=== PATIENT | female | born 1940 | race Caucasian/White ===

== ENCOUNTER 2019-01-30 08:26 | Emergency (ER) | payer MEDICARE, OTHER ==
[2019-01-30 08:32] VITALS: BP 132/72; PULSE 60; RESP 20; TEMP 97.5
[2019-01-30] MEDS ORDERED: LIDOCAINE 1% INJ 10MG/ML (20 ML MDV) SQ ONE (08:38)
--- NOTE | 2019-01-30 09:15 | XR ---
Left hip HISTORY: Trauma and pain 2 views of the left hip Bone mineralization is reduced. Alignment and joint spaces are maintained. IMPRESSION: No fracture or dislocation.
[2019-01-30] MEDS ORDERED: DIPH,PERTUS(ACELL)TETVAC-LF 0.5 ML VIAL IM ONE (09:56)
--- NOTE | 2019-01-30 10:04 | ED ---
Wound/Laceration HPI - General Chief Complaint: Wound/Laceration Stated Complaint: Fell lip laceration/leg pain Time Seen by Provider: 01/30/19 08:33 Source: patient, family Mode of arrival: ambulatory Limitations: no limitations - History of Present Illness Initial Comments: 78-year-old female presenting today for chief complaint of fall. Patient states that she was getting help from an aide getting dressed when she lost her balance falling back into her recliner, Denies head or neck injury. States she bit the inside portion of her left check. patient went to PCP because she thought she might need suture and was sent to the ER for repair as they did not have the absorable sutures. Patient states after she fell she had slight upper thigh pain. But states she can walk without a problem, no numbness, tingling or severe pain. Patient states she did not have this pain prior to falling. Patient has no other complaints. Remaining ROS (-). - Related Data Home Medications Medication Instructions Recorded Confirmed Atenolol [Tenormin] 25 mg PO BID 10/07/18 01/30/19 Levothyroxine Sodium [Synthroid] 112 mcg PO DAILY 10/07/18 01/30/19 QUEtiapine [SEROquel] 25 mg PO DAILY 01/30/19 01/30/19 Previous Rx's Medication Instructions Recorded Omeprazole 40 mg PO DAILY #20 capsule. 10/07/18 Allergies Allergy/AdvReac Type Severity Reaction Status Date / Time No Known Allergies Allergy Verified 01/30/19 09:24 Review of Systems ROS Statement: Those systems with pertinent positive or pertinent negative responses have been documented in the HPI. ROS Other: All systems not noted in ROS Statement are negative. Past Medical History Past Medical History: Dementia, Hypertension, Thyroid Disorder History of Any Multi-Drug Resistant Organisms: None Reported Additional Past Surgical History / Comment(s): thyroidectomy Past Psychological History: Depression Smoking Status: Never smoker Past Alcohol Use History: None Reported Past Drug Use History: None Reported General Exam - General Exam Comments Initial Comments: General: The patient is awake and alert, in no distress, and does not appear acutely ill. Eye: +3 mm pupils are equal, round and reactive to light, extra-ocular movements are intact. No nystagmus. There is normal conjunctiva bilaterally. No signs of icterus. Ears, nose, mouth and throat: There are moist mucous membranes. Triagular (dog ear) type laceration of inner buccal mucosa with slight extension toward corner of mouth. No involvement of the marco border, no through and through injury. No tooth avulsion or active bleeding. Neck: The neck is supple, there is no tenderness or JVD. No midline or pa ravertebral tenderness to palpation of the cervical spine. Cardiovascular: There is a regular rate and rhythm. No murmur, rub or gallop is appreciated. Respiratory: Lungs are clear to auscultation, respirations are non-labored, breath sounds are equal. No wheezes, stridor, rales, or rhonchi. Gastrointestinal: Soft, non-distended, non-tender abdomen without masses or organomegaly noted. There is no rebound or guarding present. Musculoskeletal: Normal ROM, no tenderness. Strength 5/5. Sensation intact. Radial pulses equal bilaterally 2+. Neurological: A&O x 3. CN II-XII intact, There are no obvious motor or sensory deficits. Coordination appears grossly intact. Speech is normal. Skin: Skin is warm and dry and no rashes or lesions are noted. Psychiatric: Cooperative, appropriate mood & affect, normal judgment. Limitations: no limitations Course Vital Signs 01/30/19 08:30 Temperature 97.5 F L Pulse Rate 60 Respiratory 20 Rate Blood Pressure 132/72 O2 Sat by Pulse 96 Oximetry Procedures - Laceration Laceration #1 Consent Obtained: verbal consent Indication: laceration Site: oral Size (cm): 3 Description: flap, irregular Depth: simple, single layer Pre-repair: wound explored, deep structures intact Type of Sutures: vicryl (rapide) Size of Sutures: 5-0 Number of Sutures: 7 Patient Tolerated Procedure: well, no complications Additional Comments: Patient refused numbing medication, states just get it over with. tolerated procedure without grimacing or signs of pain. Medical Decision Making - Medical Decision Making 78-year-old female presenting for oral laceration. Laceration repair. Patient tolerated procedure well. Tetanus updated. Patient is no focal neurological deficits. Patient neurovascularly intact. Patient imaging study of the hip revealed no osseous injury. Ambulates without difficulty. Patient stating she is ready to go. Term parameters as well as suture care was discussed with family and patient verbalized understanding. Patient was discharged appearing well after discussing case attending provider Dr. Michael Disposition Clinical Impression: Laceration of mouth, Left leg pain, Fall Disposition: HOME SELF-CARE Condition: Good Instructions (If sedation given, give patient instructions): Care For Your Absorbable Stitches (ED) Additional Instructions: Please use medication as discussed. Please follow-up with family doctor in the next 2 days, for wound check. Please return to emergency room if the symptoms increase or worsen or for any other concerns. Is patient prescribed a controlled substance at d/c from ED?: No Referrals: Emmanuel Alvares MD [Primary Care Provider] - 1-2 days Time of Disposition: 10:03
== END 2019-01-30 10:34 | disposition home or self-care (01) ==
LOC: EC 08:26
DX: S01.512A Laceration without foreign body of oral cavity, initial encounter (principal); M79.605 Pain in left leg; M79.659 Pain in unspecified thigh; I10 Essential (primary) hypertension; E07.9 Disorder of thyroid, unspecified; F32.9 Major depressive disorder, single episode, unspecified; F03.90 Unspecified dementia, unspecified severity, without behavioral disturbance, psychotic disturbance, mood disturbance, and anxiety; Z79.890 Hormone replacement therapy; Z79.899 Other long term (current) drug therapy; Z23 Encounter for immunization; W01.0XXA Fall on same level from slipping, tripping and stumbling without subsequent striking against object, initial encounter; Y93.89 Activity, other specified; Y92.009 Unspecified place in unspecified non-institutional (private) residence as the place of occurrence of the external cause
CPT/HCPCS: 73502; 90715; 99283; 12013; 90471; J2001

== ENCOUNTER 2019-12-20 16:07 | Inpatient (IN) | payer MEDICARE, OTHER ==
[2019-12-20] MEDS ORDERED: SODIUM CHLORIDE 0.9% 500 ML 500 ML IV ONE (17:03)
--- NOTE | 2019-12-20 17:43 | CT ---
EXAMINATION TYPE: CT brain wo con DATE OF EXAM: 12/20/2019 HISTORY: Altered mental status. CT DLP: 1064.4 mGycm. Automated Exposure Control for Dose Reduction was Utilized. TECHNIQUE: CT scan of the head is performed without contrast. COMPARISON: CT brain October 07, 2018. FINDINGS: There is no acute intracranial hemorrhage or midline shift identified. There is diffuse v entricular and sulcal prominence consistent with diffuse age-related cerebral atrophy. There is low- attenuation in the periventricular white matter consistent with chronic small vessel ischemic change. The globes are intact and the visualized sinuses are clear. Hyperostosis frontalis is seen. Stabl e sclerotic focus left frontal region axial image 24. Persistent cerumen left external auditory canal . IMPRESSION: No acute intracranial hemorrhage or midline shift. There is persistent moderate diffuse age-related cerebral atrophy and chronic small vessel ischemic change redemonstrated. No significant change from prior study.
[2019-12-20 18:03] LABS: Basophils # (A) 0.1 k/uL (0-0.2); Basophils % (A) 1 %; Eosinophils # (A) 0.3 k/uL (0-0.7); Eosinophils % (A) 4 %; HCT 44.5 % (34.0-46.0); HGB 14.7 gm/dL (11.4-16.0); Lymphocytes # (A) 1.9 k/uL (1.0-4.8); Lymphocytes % (A) 29 %; MCH 29.7 pg (25.0-35.0); MCHC 33.2 g/dL (31.0-37.0); MCV 89.5 fL (80.0-100.0); Mean Platelet Volume 7.8; Monocytes # (A) 0.5 k/uL (0-1.0); Monocytes % (A) 7 %; Neutrophils # (A) 3.6 k/uL (1.3-7.7); Neutrophils % (A) 56 %; Platelet Count 213 k/uL (150-450); RBC 4.97 m/uL (3.80-5.40); RDW 12.4 % (11.5-15.5); WBC 6.5 k/uL (3.8-10.6)
[2019-12-20 18:06] LABS: Appearance,Urine Clear (Clear); Bilirubin,Urine Negative (Negative); Blood,Urine Negative (Negative); Color,Urine Yellow; Glucose,Urine (UA) Negative (Negative); Ketones,Urine 1+ (Negative); Leukocyte Esterase,Urine Negative (Negative); Nitrite,Urine Negative (Negative); Protein,Urine Trace (Negative); Specific Gravity,Urine 1.025 (1.001-1.035)
--- NOTE | 2019-12-20 18:07 | XR ---
EXAMINATION TYPE: XR chest 2V DATE OF EXAM: 12/20/2019 COMPARISON: Chest x-ray May 11, 2011. HISTORY: Altered mental status and weakness. TECHNIQUE: Frontal and lateral views of the chest are obtained. FINDINGS: There is some chronic parenchymal change bilaterally without suspicious focal air space op acity, pleural effusion, or pneumothorax seen. Slightly diminished inspiration on current study versu s prior. The cardiac silhouette size remains enlarged with atherosclerotic aorta. The osseous stru ctures remain demineralized. Advanced degenerative change bilateral glenohumeral joints is present. S ome prominent gas-filled bowel loops in the abdomen likely small bowel loops noted. Correlate clinica lly. IMPRESSION: Chronic changes and cardiomegaly without acute pulmonary process.
[2019-12-20 18:12] LABS: INR 1.1 (<1.2); Partial Thromboplastin Time 27.1 sec (22.0-30.0); Prothrombin Time 11.2 sec (9.0-12.0)
[2019-12-20 18:15] LABS: ALT 14 U/L (4-34); AST 25 U/L (14-36); African American GFR (CKD) >90 (>60 ml/min/1.73 sqM); Alkaline Phosphatase 118 U/L (38-126); Amphetamine Screen,Urine Not Detected (NotDetected); Anion Gap 10 mmol/L; Barbiturate Screen,Urine Not Detected (NotDetected); Benzodiazepines Screen,Urine Detected (NotDetected); Blood Urea Nitrogen 19 mg/dL (7-17); Calcium 9.7 mg/dL (8.4-10.2); Carbon Dioxide 24 mmol/L (22-30); Chloride 105 mmol/L (98-107); Cocaine Screen,Urine Not Detected (NotDetected); Glucose 73 mg/dL (74-99); Methadone Screen, Urine Not Detected (NotDetected); Non-African American GFR(CKD) >90 (>60 ml/min/1.73 sqM); Opiate Screen,Urine Not Detected (NotDetected); Oxycodone Screen, Urine Not Detected (NotDetected); Phencyclidine Screen,Urine Not Detected (NotDetected); Potassium 3.5 mmol/L (3.5-5.1); Sodium 139 mmol/L (137-145); Total Bilirubin 0.5 mg/dL (0.2-1.3); Total Protein 6.7 g/dL (6.3-8.2); Tricyclic Antidepressant,Urine Detected (NotDetected); Urn Cannabinoid Scrn Not Detected (NotDetected)
--- NOTE | 2019-12-20 18:15 | ED ---
General Adult HPI - General Chief complaint: Altered Mental Status Stated complaint: Failure to Thrive Time Seen by Provider: 12/20/19 16:20 Source: EMS, RN notes reviewed, old records reviewed Mode of arrival: EMS Limitations: altered mental status - History of Present Illness Initial comments: This is an 79-year-old female who presents to the emergency department because she is more altered than normal and not taking her care of herself. Patient is unable to give any history at all she is alert and oriented 1 at best on occasion she is alert and oriented 0. Patient is sometimes combative when you agitated at all. Patient does not look however in any distress. No other history is available no family members with the patient. - Related Data Home Medications Medication Instructions Recorded Confirmed Atenolol [Tenormin] 25 mg PO BID 10/07/18 01/30/19 Levothyroxine Sodium [Synthroid] 112 mcg PO DAILY 10/07/18 01/30/19 QUEtiapine [SEROquel] 25 mg PO DAILY 01/30/19 01/30/19 Previous Rx's Medication Instructions Recorded Omeprazole 40 mg PO DAILY #20 capsule. 10/07/18 Allergies Allergy/AdvReac Type Severity Reaction Status Date / Time No Known Allergies Allergy Verified 12/20/19 16:21 Review of Systems ROS Statement: Those systems with pertinent positive or pertinent negative responses have been documented in the HPI. ROS Other: All systems not noted in ROS Statement are negative. Past Medical History Past Medical History: Dementia, Hypertension, Thyroid Disorder History of Any Multi-Drug Resistant Organisms: None Reported Additional Past Surgical History / Comment(s): thyroidectomy Past Psychological History: Depression Smoking Status: Never smoker Past Alcohol Use History: None Reported Past Drug Use History: None Reported General Exam - General Exam Comments Initial Comments: GENERAL: Patient is well-developed and well-nourished. Patient is nontoxic and well- hydrated and is in no acute distress. ENT: Neck is soft and supple. No significant lymphadenopathy is noted. Oropharynx is clear. Moist mucous membranes. Neck has full range of motion without eliciting any pain. EYES: The sclera were anicteric and conjunctiva were pink and moist. Extraocular movements were intact and pupils were equal round and reactive to light. Eyelids were unremarkable. PULMONARY: Unlabored respirations. Good breath sounds bilaterally. No audible rales rhonchi or wheezing was noted. CARDIOVASCULAR: There is a regular rate and rhythm without any murmurs gallops or rubs. ABDOMEN: Soft and nontender with normal bowel sounds. SKIN: Skin is clear with no lesions or rashes and otherwise unremarkable. NEUROLOGIC: Patient is alert and oriented 1. Cranial nerves II through XII are grossly intact. Motor and sensory are also intact. Normal speech, volume and content. Symmetrical smile. MUSCULOSKELETAL: Normal extremities with adequate strength and full range of motion. No lower extremity swelling or edema. No calf tenderness. LYMPHATICS: No significant lymphadenopathy is noted PSYCHIATRIC: Unable to assess Course Vital Signs 12/20/19 16:17 Temperature 98.1 F Pulse Rate 69 Respiratory 18 Rate Blood Pressure 143/68 O2 Sat by Pulse 96 Oximetry Medical Decision Making - Medical Decision Making EKG shows normal sinus rhythm at 60 bpm AR interval 180 Fortress is 92 QT interval is 428 QTC is 420. Patient's EKG shows no ST segment elevation or depression. CT head shows no acute abnormality. Chest x-ray shows no acute abnormality. Patient continues to remain altered however I do not know the patient's baseline and family is not available here. I spoke with sounds physician's agreed to admit the patient admitted the patient wrote admitting orders. - Lab Data Result diagrams: 12/20/19 17:45 12/20/19 17:45 Lab Results 12/20/19 12/20/19 12/20/19 Range/Units 17:45 17:45 17:45 WBC 6.5 (3.8-10.6) k/uL RBC 4.97 (3.80-5.40) m/uL Hgb 14.7 (11.4-16.0) gm/dL Hct 44.5 (34.0-46.0) % MCV 89.5 (80.0-100.0) fL MCH 29.7 (25.0-35.0) pg MCHC 33.2 (31.0-37.0) g/dL RDW 12.4 (11.5-15.5) % Plt Count 213 (150-450) k/uL Neutrophils % 56 % Lymphocytes % 29 % Monocytes % 7 % Eosinophils % 4 % Basophils % 1 % Neutrophils # 3.6 (1.3-7.7) k/uL Lymphocytes # 1.9 (1.0-4.8) k/uL Monocytes # 0.5 (0-1.0) k/uL Eosinophils # 0.3 (0-0.7) k/uL Basophils # 0.1 (0-0.2) k/uL PT 11.2 (9.0-12.0) sec INR 1.1 (<1.2) APTT 27.1 (22.0-30.0) sec Sodium (137-145) mmol/L Potassium (3.5-5.1) mmol/L Chloride (98-107) mmol/L Carbon Dioxide (22-30) mmol/L Anion Gap mmol/L BUN (7-17) mg/dL Creatinine (0.52-1.04) mg/dL Est GFR (CKD-EPI)AfAm (>60 ml/min/1.73 sqM) Est GFR (CKD-EPI)NonAf (>60 ml/min/1.73 sqM) Glucose (74-99) mg/dL Calcium (8.4-10.2) mg/dL Total Bilirubin (0.2-1.3) mg/dL AST (14-36) U/L ALT (4-34) U/L Alkaline Phosphatase (38-126) U/L Troponin I (0.000-0.034) ng/mL Total Protein (6.3-8.2) g/dL Albumin (3.5-5.0) g/dL Urine Color Yellow Urine Appearance Clear (Clear) Urine pH 6.0 (5.0-8.0) Ur Specific [facility] 1.025 (1.001-1.035) Urine Protein Trace H (Negative) Urine Glucose (UA) Negative (Negative) Urine Ketones 1+ H (Negative) Urine Blood Negative (Negative) Urine Nitrite Negative (Negative) Urine Bilirubin Negative (Negative) Urine Urobilinogen 4.0 (<2.0) mg/dL Ur Leukocyte Esterase Negative (Negative) Urine Opiates Screen Not Detected (NotDetected) Ur Oxycodone Screen Not Detected (NotDetected) Urine Methadone Screen Not Detected (NotDetected) Ur Propoxyphene Screen Not Detected (NotDetected) Ur Barbiturates Screen Not Detected (NotDetected) U Tricyclic Antidepress Detected H (NotDetected) Ur Phencyclidine Scrn Not Detected (NotDetected) Ur Amphetamines Screen Not Detected (NotDetected) U Methamphetamines Scrn Not Detected (NotDetected) U Benzodiazepines Scrn Detected H (NotDetected) Urine Cocaine Screen Not Detected (NotDetected) U Marijuana (THC) Screen Not Detected (NotDetected) 12/20/19 12/20/19 Range/Units 17:45 17:45 WBC (3.8-10.6) k/uL RBC (3.80-5.40) m/uL Hgb (11.4-16.0) gm/dL Hct (34.0-46.0) % MCV (80.0-100.0) fL MCH (25.0-35.0) pg MCHC (31.0-37.0) g/dL RDW (11.5-15.5) % Plt Count (150-450) k/uL Neutrophils % % Lymphocytes % % Monocytes % % Eosinophils % % Basophils % % Neutrophils # (1.3-7.7) k/uL Lymphocytes # (1.0-4.8) k/uL Monocytes # (0-1.0) k/uL Eosinophils # (0-0.7) k/uL Basophils # (0-0.2) k/uL PT (9.0-12.0) sec INR (<1.2) APTT (22.0-30.0) sec Sodium 139 (137-145) mmol/L Potassium 3.5 (3.5-5.1) mmol/L Chloride 105 (98-107) mmol/L Carbon Dioxide 24 (22-30) mmol/L Anion Gap 10 mmol/L BUN 19 H (7-17) mg/dL Creatinine 0.49 L (0.52-1.04) mg/dL Est GFR (CKD-EPI)AfAm >90 (>60 ml/min/1.73 sqM) Est GFR (CKD-EPI)NonAf >90 (>60 ml/min/1.73 sqM) Glucose 73 L (74-99) mg/dL Calcium 9.7 (8.4-10.2) mg/dL Total Bilirubin 0.5 (0.2-1.3) mg/dL AST 25 (14-36) U/L ALT 14 (4-34) U/L Alkaline Phosphatase 118 (38-126) U/L Troponin I <0.012 (0.000-0.034) ng/mL Total Protein 6.7 (6.3-8.2) g/dL Albumin 4.0 (3.5-5.0) g/dL Urine Color Urine Appearance (Clear) Urine pH (5.0-8.0) Ur Specific [facility] (1.001-1.035) Urine Protein (Negative) Urine Glucose (UA) (Negative) Urine Ketones (Negative) Urine Blood (Negative) Urine Nitrite (Negative) Urine Bilirubin (Negative) Urine Urobilinogen (<2.0) mg/dL Ur Leukocyte Esterase (Negative) Urine Opiates Screen (NotDetected) Ur Oxycodone Screen (NotDetected) Urine Methadone Screen (NotDetected) Ur Propoxyphene Screen (NotDetected) Ur Barbiturates Screen (NotDetected) U Tricyclic Antidepress (NotDetected) Ur Phencyclidine Scrn (NotDetected) Ur Amphetamines Screen (NotDetected) U Methamphetamines Scrn (NotDetected) U Benzodiazepines Scrn (NotDetected) Urine Cocaine Screen (NotDetected) U Marijuana (THC) Screen (NotDetected) Disposition Clinical Impression: Altered mental status, Inability to perform activities of daily living Disposition: ADMITTED IP TO THIS [facility] Referrals: Emmanuel Alvares MD [Primary Care Provider] - 1-2 days Time of Disposition: 18:37
[2019-12-20] MEDS ORDERED: SODIUM CHLORIDE 0.9% 1,000 ML IV ONE (18:38)
[2019-12-20] MEDS ORDERED: HALOPERIDOL LACTATE 5 MG/ML 1 ML VIAL IM STA (20:50)
[2019-12-20 21:03] VITALS: TEMP 98.5
--- NOTE | 2019-12-20 21:59 | P.HPIM ---
History of Present Illness H&P Date: 12/20/19 The patient is an 79-year-old female with a PMH of hypertension, hypothyroid rhythm, and advanced dementia who was sent in from [facility] assisted living. The patient is an extremity poor historian with history obtained from daughter Namita via phone ([phone] of consumer attorney). The daughter notes that she was notified by the assisted living facility that over the past few months, the patients condition of gradually been deteriorating. She reports that her mother's dementia has advanced significantly, and that she is normally only oriented to self and is not able to perform her ADLs other than using the restroom. She notes that there were plans to move towards 24-hour care in the same facility, though the patient had been eating less over the past few days and also had a fall a week ago, which prompted them to send the patient to the hospital for further evaluation. The patient was evaluated in the emergency room. She was pleasant though was only oriented to self and not able to answer questions appropriately. She was unable to state where she lived or where she currently was. She also was not aware of the year. She however denied any active complaints. She denied chest pain, shortness of breath, fever, chills, abdominal pain, dysuria, nausea, or vomiting. She had undergone extensive evaluation in the emergency room with an EKG showing normal sinus rhythm at 60 bpm with chest x-ray showing chronic changes and cardiomegaly without acute abnormalities. CT brain revealed persistent moderate diffuse age-related cerebral atrophy and chronic small vessel ischemic changes with no other acute findings. Laboratory evaluation was unremarkable except for an elevated BUN of 19, creatinine low at 0.49, and a glucose of 73. UA was negative for infection. Review of Systems Pertinent positives and negatives as discussed in HPI, a complete review of systems was performed and all other systems are negative. Past Medical History Past Medical History: Dementia, Hypertension, Thyroid Disorder History of Any Multi-Drug Resistant Organisms: None Reported Additional Past Surgical History / Comment(s): thyroidectomy Past Psychological History: Depression Smoking Status: Never smoker Past Alcohol Use History: None Reported Past Drug Use History: None Reported Medications and Allergies Home Medications Medication Instructions Recorded Confirmed Type Atenolol [Tenormin] 25 mg PO BID 10/07/18 01/30/19 History Levothyroxine Sodium [Synthroid] 112 mcg PO DAILY 10/07/18 01/30/19 History ALPRAZolam [Xanax] 0.25 mg PO BID 12/20/19 12/20/19 History Donepezil HCl [Aricept] 5 mg PO DAILY 12/20/19 12/20/19 History QUEtiapine [SEROquel] 100 mg PO HS 12/20/19 12/20/19 History Sertraline HCl [Zoloft] 50 mg PO DAILY 12/20/19 12/20/19 History Allergies Allergy/AdvReac Type Severity Reaction Status Date / Time No Known Allergies Allergy Verified 12/20/19 20:55 Physical Exam Vitals: Vital Signs Temp Pulse Resp BP Pulse Ox 12/20/19 19:37 98.2 F 65 16 133/65 97 12/20/19 16:17 98.1 F 69 18 143/68 96 Intake and Output 12/20/19 12/20/19 12/20/19 06:59 14:59 22:59 Other: Weight 46.901 kg General: non toxic, no distress, appears at stated age, normal weight Derm: no unusual rashes/lesions no unusual ecchymoses, warm, dry Head: atraumatic, normocephalic, symmetric Eyes: EOMI, no lid lag, anicteric sclera, pupils equal round reactive to light ENT: Nose and ears atraumatic, no thrush, no pharyngeal erythema Neck: No thyromegaly, no cervical lymphadenopathy, trachea midline, supple Mouth: no lip lesion, mucus membranes moist Cardiovascular: S1S2 reg, no murmur, positive posterior tibial pulse bilateral, no edema, capillary refill less than 2 seconds Lungs: CTA bilateral, no rhonchi, no rales , no accessory muscle use Abdominal: soft, nontender to palpation, no guarding, no appreciable organomegaly, normal bowel sounds Ext: no gross muscle atrophy, muscle strength 4 out of 5 in all 4 extremities grossly, no contractures, Neuro: CN II-XI grossly intact, light touch intact all 4 extremities, finger to nose within normal limits, Psych: Awake, alert, oriented only to self Results CBC & Chem 7: 12/20/19 17:45 12/20/19 17:45 Labs: Abnormal Lab Results - Last 24 Hours (Table) 12/20/19 12/20/19 Range/Units 17:45 17:45 BUN 19 H (7-17) mg/dL Creatinine 0.49 L (0.52-1.04) mg/dL Glucose 73 L (74-99) mg/dL Urine Protein Trace H (Negative) Urine Ketones 1+ H (Negative) U Tricyclic Antidepress Detected H (NotDetected) U Benzodiazepines Scrn Detected H (NotDetected) Assessment and Plan Plan: Failure to thrive, in setting of advanced dementia -Fall precautions -Social work consult Prerenal azotemia, likely secondary to dehydration from poor oral intake -Continue with IV fluids -Monitor BMP Hypoglycemia, likely secondary to poor oral intake -Monitor blood glucose levels -Dietitian consult Chronic conditions: Hypertension, hypothyroidism -Continue with home meds DVT prophylaxis -Heparin subq The patient is admitted with an anticipated less than 2 midnight stay for evaluation of failure to thrive CODE STATUS: No Code Discussed with: Patient, daughter Anticipated discharge date: 12/[address]: [facility] A total of 40 minutes was spent on the care of this complex patient more than 50% of the time was spent in counseling and care coordination.
[2019-12-20] MEDS: QUEtiapine 50 MG TAB PO SCH ×2 (22:20→23:13)
[2019-12-20 22:59] LABS: Glucose,Whole Blood 77 mg/dL (75-99)
[2019-12-21 02:40] LABS: Glucose,Whole Blood 115 mg/dL (75-99)
[2019-12-21] MEDS ORDERED: LEVOTHYROXINE 112 MCG TAB PO SCH (06:30)
[2019-12-21 07:11] LABS: African American GFR (CKD) >90 (>60 ml/min/1.73 sqM); Anion Gap 4 mmol/L; Blood Urea Nitrogen 14 mg/dL (7-17); Calcium 9.1 mg/dL (8.4-10.2); Carbon Dioxide 26 mmol/L (22-30); Chloride 111 mmol/L (98-107); Glucose 76 mg/dL (74-99); Non-African American GFR(CKD) >90 (>60 ml/min/1.73 sqM); Potassium 4.2 mmol/L (3.5-5.1); Sodium 141 mmol/L (137-145)
[2019-12-21 07:14] LABS: Glucose,Whole Blood 92 mg/dL (75-99)
[2019-12-21 07:22] VITALS: RESP 17
[2019-12-21] MEDS ORDERED: LORazepam 2 MG/ML INJ IV PRN (08:28)
[2019-12-21] MEDS ORDERED: LORazepam 2 MG/ML INJ IM PRN (08:30)
[2019-12-21] MEDS ORDERED: SERTRALINE 50 MG TAB PO SCH (09:00)
[2019-12-21] MEDS ORDERED: DONEPEZIL 5 MG TAB PO SCH (09:00)
[2019-12-21] MEDS ORDERED: HEPARIN SODIUM,PORCINE 5,000 UNIT/ML 1 ML VIAL SQ SCH (09:00)
[2019-12-21] MEDS ORDERED: ATENOLOL 25 MG TAB PO SCH (09:00)
--- NOTE | 2019-12-21 09:12 | P.PN ---
Subjective Progress Note Date: 12/21/19 Patient seen and examined at bedside. Patient was not very compliant in answering all my questions. She appeared angry and did not want to talk. Patient appeared to be resting comfortably with no signs of acute distress. Patient does get combative when being approached. Auscultation of lungs and heart was done, but then patient started pushing me away. Sitter at bedside. The patient is an 79-year-old female with a PMH of hypertension, hypothyroid rhythm, and advanced dementia who was sent in from [facility]. The patient is an extremity poor historian with history obtained from daughter Namita via phone ([phone] of market research analyst). The daughter notes that she was notified by the assisted living facility that over the past few months, the patients condition of gradually been deteriorating. She reports that her mother's dementia has advanced significantly, and that she is normally only oriented to self and is not able to perform her ADLs other than using the restroom. She notes that there were plans to move towards 24-hour care in the same facility, though the patient had been eating less over the past few days and also had a fall a week ago, which prompted them to send the patient to the hospital for further evaluation. The patient was evaluated in the emergency room. She was pleasant though was only oriented to self and not able to answer questions appropriately. She was unable to state where she lived or where she currently was. She also was not aware of the year. She however denied any active complaints. She denied chest pain, shortness of breath, fever, chills, abdominal pain, dysuria, nausea, or vomiting. She had undergone extensive eval uation in the emergency room with an EKG showing normal sinus rhythm at 60 bpm with chest x-ray showing chronic changes and cardiomegaly without acute abnormalities. CT brain revealed persistent moderate diffuse age-related cerebral atrophy and chronic small vessel ischemic changes with no other acute findings. Laboratory evaluation was unremarkable except for an elevated BUN of 19, creatinine low at 0.49, and a glucose of 73. UA was negative for infection. Objective - Vital Signs Vital signs: Vital Signs Temp 98.5 F 12/20/19 21:02 Pulse 89 12/21/19 07:00 Resp 17 12/21/19 07:00 BP 126/63 12/20/19 21:02 Pulse Ox 98 12/21/19 07:00 Intake & Output 12/20/19 12/21/19 12/21/19 18:59 06:59 18:59 Intake Total 575 Balance 575 Weight 46.901 kg 46.901 kg Intake: Intake, IV Titration 575 Amount Sodium Chloride 0.9% 1, 575 000 ml @ 75 mls/hr IV . [id number] ONE Rx#:[id number] Other: Voiding Method Toilet # Voids 1 - Exam General: [non toxic], [no distress], [appears at stated age] Derm: [warm], [dry] Head: [atraumatic], [normocephalic], [symmetric] Eyes: [EOMI], [no lid lag], [anicteric sclera] Mouth: [no lip lesion], [mucus membranes moist] Cardiovascular: [S1S2 reg], [no murmur], [positive posterior tibial pulse bilateral], Lungs: [CTA bilateral], [no rhonchi, no rales] , [no accessory muscle use] Abdominal: [soft], [ nontender to palpation], [no guarding], [no appreciable organomegaly] Ext: [no gross muscle atrophy], [no edema], [no contractures] Neuro: [ CN II-XI grossly intact], [no focal neuro deficits] Psych: [Alert], NON COMPLIANT COMBATIVE - Labs CBC & Chem 7: 12/20/19 17:45 12/21/19 06:11 Labs: Abnormal Lab Results - Last 24 Hours (Table) 12/20/19 12/20/19 12/21/19 Range/Units 17:45 17:45 02:37 Chloride (98-107) mmol/L BUN 19 H (7-17) mg/dL Creatinine 0.49 L (0.52-1.04) mg/dL Glucose 73 L (74-99) mg/dL POC Glucose (mg/dL) 115 H (75-99) mg/dL Urine Protein Trace H (Negative) Urine Ketones 1+ H (Negative) U Tricyclic Antidepress Detected H (NotDetected) U Benzodiazepines Scrn Detected H (NotDetected) 12/21/19 Range/Units 06:11 Chloride 111 H (98-107) mmol/L BUN (7-17) mg/dL Creatinine 0.42 L (0.52-1.04) mg/dL Glucose (74-99) mg/dL POC Glucose (mg/dL) (75-99) mg/dL Urine Protein (Negative) Urine Ketones (Negative) U Tricyclic Antidepress (NotDetected) U Benzodiazepines Scrn (NotDetected) Assessment and Plan Assessment: Failure to thrive, in setting of advanced dementia -Fall precautions -1:1 sitter -Awaiting bed for ECF -Ativan prn agitation -Aricept daily HTN -Atenolol 50mg daily Anxiety and depression -continue zoloft and seroquel Hypothyroid -levothyroxine GI and DVT prophylaxis
[2019-12-21] MEDS ORDERED: FAMOTIDINE 20 MG TAB PO SCH (09:15)
[2019-12-21 09:16] VITALS: BP 148/89; PULSE 65
--- NOTE | 2019-12-21 09:51 | P.DS ---
Providers Date of admission: 12/20/19 18:39 Attending physician: Chelsey Amaya DO Primary care physician: [facility] Course: Admitting Diagnoses: -Failure to thrive, in setting of advanced dementia -prerenal azotemia -hypoglycemia secondary to poor oral intake -Anxiety and depression -HTN -Hypothyroid Discharge diagnoses: -Failure to thrive, in setting of advanced dementia -Anxiety and depression -HTN -Hypothyroid Patient seen and examined at bedside. Patient was not very compliant in answering all my questions. She appeared angry and did not want to talk. Patient appeared to be resting comfortably with no signs of acute distress. Patient does get combative when being approached. Auscultation of lungs and heart was done, but then patient started pushing me away. Sitter at bedside. Discussed case with case management and her daughter daughter Namita. Patient is stable to return to [facility] with 07/02 care Daughter was concerned about patient's anxiety and depression as well as her dementia. Aricept was increased to 10 mg daily. Zoloft was increased to 100 mg daily. Patient's daughter was advised to follow-up with her primary care physician within one week for reevaluation of medications. The patient is an 79-year-old female with a PMH of hypertension, hypothyroid rhythm, and advanced dementia who was sent in from [facility] assisted living. The patient is an extremity poor historian with history obtained from daughter Namita via phone ([phone] of real estate attorney). The daughter notes that she was notified by the assisted living facility that over the past few months, the patients condition of gradually been deteriorating. She reports that her mother's dementia has advanced significantly, and that she is normally only oriented to self and is not able to perform her ADLs other than using the restroom. She notes that there were plans to move towards 24-hour care in the same facility, though the patient had been eating less over the past few days and also had a fall a week ago, which prompted them to send the patient to the hospital for further evaluation. The patient was evaluated in the emergency room. She was pleasant though was only oriented to self and not able to answer questions appropriately. She was unable to state where she lived or where she currently was. She also was not aware of the year. She however denied any active complaints. She denied chest pain, shortness of breath, fever, chills, abdominal pain, dysuria, nausea, or vomiting. She had undergone extensive evaluation in the emergency room with an EKG showing normal sinus rhythm at 60 bpm with chest x-ray showing chronic changes and cardiomegaly without acute abnormalities. CT brain revealed persistent moderate diffuse age-related cerebral atrophy and chronic small vessel ischemic changes with no other acute findings. Laboratory evaluation was unremarkable except for an elevated BUN of 19, creatinine low at 0.49, and a glucose of 73. UA was negative for infection. Vitals this morning temperature 98.5 heart rate 65 blood pressure 140/89 patient did not take her medications oxygen saturation 98% on room air General: [non toxic], [no distress], [appears at stated age] Derm: [warm], [dry] Head: [atraumatic], [normocephalic], [symmetric] Eyes: [EOMI], [no lid lag], [anicteric sclera] Mouth: [no lip lesion], [mucus membranes moist] Cardiovascular: [S1S2 reg], [no murmur], [positive posterior tibial pulse bilateral], Lungs: [CTA bilateral], [no rhonchi, no rales] , [no accessory muscle use] Abdominal: [soft], [ nontender to palpation], [no guarding], [no appreciable organomegaly] Ext: [no gross muscle atrophy], [no edema], [no contractures] Neuro: [ CN II-XI grossly intact], [no focal neuro deficits] Psych: [Alert], non-compliant Condition fair Diet cardiac Activity as tolerated Disposition return to [facility] with 07/02 care Patient Condition at Discharge: Fair Plan - Discharge Summary Discharge Rx Participant: Yes New Discharge Prescriptions: New Donepezil [Aricept] 10 mg PO HS 30 Days #30 tab Sertraline [Zoloft] 100 mg PO DAILY 30 Days #30 tab Continue Atenolol [Tenormin] 50 mg PO DAILY Levothyroxine Sodium [Synthroid] 112 mcg PO DAILY ALPRAZolam [Xanax] 0.25 mg PO BID QUEtiapine [SEROquel] 100 mg PO HS Discontinued Sertraline HCl [Zoloft] 50 mg PO DAILY Donepezil HCl [Aricept] 5 mg PO DAILY Discharge Medication List Atenolol [Tenormin] 50 mg PO DAILY 10/07/18 [History] Levothyroxine Sodium [Synthroid] 112 mcg PO DAILY 10/07/18 [History] ALPRAZolam [Xanax] 0.25 mg PO BID 12/20/19 [History] QUEtiapine [SEROquel] 100 mg PO HS 12/20/19 [History] Donepezil [Aricept] 10 mg PO HS 30 Days #30 tab 12/21/19 [Rx] Sertraline [Zoloft] 100 mg PO DAILY 30 Days #30 tab 12/21/19 [Rx] Follow up Appointment(s)/Referral(s): Emmanuel Alvares MD [Primary Care Provider] - 1-2 days Discharge Disposition: OTHER INSTITUTION NOT DEFINED Care Plan Goals (MU): Patient will return to [facility] with / care
[2019-12-21 10:01] VITALS: BMI 18.3
[2019-12-21 11:24] LABS: Glucose,Whole Blood 103 mg/dL (75-99)
[2019-12-21] MEDS ORDERED: DONEPEZIL 10 MG TAB PO SCH (21:00)
[2019-12-22] MEDS ORDERED: SERTRALINE 100 MG TAB PO SCH (09:00)
== END 2019-12-21 15:00 | disposition home or self-care (01) | DRG 641 ==
LOC: EC 16:07 → 5NMEDONC 18:39
PROVIDERS: ADMIT Internal Medicine; ATTEND Internal Medicine
DX: R62.7 Adult failure to thrive (principal); Z68.1 Body mass index [BMI] 19.9 or less, adult; F03.90 Unspecified dementia, unspecified severity, without behavioral disturbance, psychotic disturbance, mood disturbance, and anxiety; I11.9 Hypertensive heart disease without heart failure; E16.2 Hypoglycemia, unspecified; E86.0 Dehydration; Z66 Do not resuscitate; R39.2 Extrarenal uremia; F41.9 Anxiety disorder, unspecified; F32.9 Major depressive disorder, single episode, unspecified; E89.0 Postprocedural hypothyroidism; Z79.890 Hormone replacement therapy; Z79.899 Other long term (current) drug therapy; Z91.81 History of falling; Z71.3 Dietary counseling and surveillance; Z98.890 Other specified postprocedural states
CPT/HCPCS: 36415; 70450; 71046; 80048; 80053; 80306; 81003; 84484; 85025; 85610; 85730; 93005; 96360; 99285